=== PATIENT | female | born 1990 | race Caucasian/White ===

== ENCOUNTER 2017-09-28 00:05 | Inpatient (IN) ==
[2017-09-28 01:05] LABS: Basophils % 0.3 % (0.0-0.8); Eosinophils % 0.1 % (0.00-10.9); Hematocrit 35.6 VOL% (35.7-47.0); Hemoglobin 11.7 GM/DL (12.0-16.0); Immature Granulocytes % 0.3 %; Immature Granulocytes Absolute 0.03 #; Lymphocytes # 2.5 10*3/uL (1.4-4.0); Lymphocytes % 28.2 % (21.3-54.2); Mean Corpuscular HGB Conc 32.9 GM/DL (32-36); Mean Corpuscular Hemoglobin 29 PG (27-34); Mean Corpuscular Volume 88.8 FL (87-102); Mean Platelet Volume 12.6 FL (9.6-12.0); Monocytes # 0.8 10*3/uL (0.11-0.8); Monocytes % 8.7 % (1.7-12.7); Neutrophils # 5.5 10*3/uL (1.4-7.4); Neutrophils % 62.4 % (38.7-73.9); Platelet Count 217 T/CUMM (130-400); Red Blood Count 4.01 MC/CUMM (3.8-5.5); Red Cell Distribution Width 14.6 % (9.3-17.3); White Blood Count 8.8 T/CUMM (4-12)
[2017-09-28 01:16] LABS: INR 0.9; PT Patient Result 9.7 SECS; Partial Thromboplastin Time 26.6 SECS (0-40)
[2017-09-28 01:20] LABS: Alanine Aminotransferase 11 U/L (13-56); Albumin 2.3 G/DL (3.4-5.0); Alkaline Phosphatase 130 U/L (45-117); Aspartate Amino Transferase 14 U/L (0-37); Bilirubin,Total < 0.39 MG/DL (0.2-1.0); Blood Urea Nitrogen 14 MG/DL (7-18); Glucose 89 MG/DL (74-106); Osmolality,Calculated 274.7 MOS/KG (273-304); Potassium 4.4 MMOL/L (3.5-5.1); Sodium 138 MMOL/L (136-145); Total Protein 5.9 G/DL (6.4-8.3)
[2017-09-28] MEDS: ONDANSETRON 4 MG/2 ML VIAL IV PRN ×2 (12:42→21:41)
[2017-09-28] MEDS: BUTORPHANOL 2 MG/ML VIAL IV PRN ×2 (12:42→19:12)
[2017-09-28] MEDS: LACTATED RINGERS 1,000 ML IV SCH ×3 (13:14→21:35)
[2017-09-28] MEDS ORDERED: AMPICILLIN INJ 2,000 MG in SODIUM CHLORIDE 0.9% 100 ML IV ONE (13:15)
[2017-09-28] MEDS: MEPERIDINE 50 MG/1 ML VIAL IV PRN ×2 (15:16→21:41)
[2017-09-28] MEDS: AMPICILLIN INJ 1,000 MG in SODIUM CHLORIDE 0.9% 100 ML IV SCH ×2 (17:55→21:33)
[2017-09-28] MEDS ORDERED: OXYTOCIN/LR 20 UNIT/1,000 ML BAG IV ONE ×2 (20:50→23:44)
[2017-09-28] MEDS ORDERED: OXYTOCIN/LR 20 UNIT/1,000 ML BAG IV SCH (21:00)
[2017-09-28] MEDS ORDERED: MAGNESIUM SULF DRIP 40 GM/1,000 ML ML IV SCH (22:00)
[2017-09-28] MEDS ORDERED: miSOPROStol 200 MCG TABLET ONE (23:00)
[2017-09-28] MEDS ORDERED: LIDOCAINE 1% 50 ML VIAL ONE (23:00)
[2017-09-28] MEDS ORDERED: METHYLERGONOVINE 0.2 MG/1 ML AMP ONE (23:01)
[2017-09-28] MEDS ORDERED: ACETAMINOPHEN 325 MG TABLET PO PRN (23:44)
[2017-09-28] MEDS ORDERED: WITCH HAZEL PADS 100/JAR TOP PRN (23:44)
[2017-09-28] MEDS ORDERED: ONDANSETRON 4 MG/2 ML VIAL IV PRN (23:44)
[2017-09-28] MEDS ORDERED: LANOLIN 50% CREAM 0.3 OZ TUBE TOP PRN (23:44)
[2017-09-28] MEDS ORDERED: BENZOCAINE 20%/MENTHOL 0.5% SPRAY 56 GM CAN TOP PRN (23:44)
[2017-09-28] MEDS ORDERED: oxyCODONE/ACETAMINOPHEN 5-325 MG TABLET PO PRN (23:44)
[2017-09-28] MEDS ORDERED: HYDROCORTISONE 2.5% RECTAL CREAM 30 GM TUBE TOP PRN (23:44)
[2017-09-28] MEDS ORDERED: BISACODYL 10 MG SUPP RECTAL PRN (23:44)
[2017-09-29 00:08] LABS: Apearance,Urine CLEAR (Clear); Bilirubin,Urine Negative (Negative); Blood, Urine Large mg/dL (Negative); Glucose,Urine (UA) Negative (Negative); Ketones,Urine 20 mg/dL (Negative); Mucus,Urine Occasional /LPF (Occasional); Nitrite,Urine Negative (Negative); Protein,Urine 100 MG/DL; RBC,Urine 37 /HPF (0-4); Squamous Epithelial Cell,Urine Occasional /HPF (0-10); Urine Color Yellow (Yellow); Urine Specific Gravity 1.017 (1.001-1.035); Urine Urobilinogen < 2.0 EU/DL (0.2-1.0); WBC,Urine 2 /HPF (0-6)
[2017-09-29] MEDS ORDERED: MEASLES/MUMPS/RUBELLA VACCINE 0.5 ML VIAL SUBCUT ONE (01:00)
[2017-09-29] MEDS ORDERED: RHO(D) IMMUNE GLOBULIN 300 MCG SYRINGE IM ONE (01:00)
[2017-09-29] MEDS ORDERED: DIPH/TET/ACEL PERT BOOSTER VACCINE 0.5 ML VIAL IM ONE (01:00)
[2017-09-29] MEDS: LACTATED RINGERS 1,000 ML IV SCH (02:00)
[2017-09-29] MEDS: oxyCODONE/ACETAMINOPHEN 5-325 MG TABLET PO PRN ×2 (02:34→17:42)
[2017-09-29] MEDS: IBUPROFEN 800 MG TABLET PO PRN ×2 (02:35→17:42)
[2017-09-29 06:27] LABS: Basophils % 0.2 % (0.0-0.8); Eosinophils % 0.1 % (0.00-10.9); Hematocrit 30.3 VOL% (35.7-47.0); Hemoglobin 10.5 GM/DL (12.0-16.0); Immature Granulocytes % 0.6 %; Immature Granulocytes Absolute 0.09 #; Lymphocytes # 1.7 10*3/uL (1.4-4.0); Lymphocytes % 10.7 % (21.3-54.2); Mean Corpuscular HGB Conc 34.7 GM/DL (32-36); Mean Corpuscular Hemoglobin 30 PG (27-34); Mean Corpuscular Volume 85.1 FL (87-102); Mean Platelet Volume 12.1 FL (9.6-12.0); Monocytes # 1.2 10*3/uL (0.11-0.8); Monocytes % 7.4 % (1.7-12.7); Neutrophils # 13.1 10*3/uL (1.4-7.4); Platelet Count 193 T/CUMM (130-400); Red Blood Count 3.56 MC/CUMM (3.8-5.5); Red Cell Distribution Width 14.6 % (9.3-17.3); White Blood Count 16.1 T/CUMM (4-12)
[2017-09-29] MEDS: DOCUSATE SODIUM 100 MG CAPSULE PO SCH ×2 (08:41→20:37)
[2017-09-30 07:39] VITALS: BP 131/79
[2017-09-30] MEDS: DOCUSATE SODIUM 100 MG CAPSULE PO SCH (08:58)
== END 2017-09-30 13:00 | disposition home or self-care (01) | DRG 775 ==
LOC: N.LD 00:05 → N.OB 09-29 02:15
PROVIDERS: ADMIT Obstetrics & Gynecology; ATTEND Obstetrics & Gynecology